=== PATIENT | female | born 1975 | race Caucasian/White ===

== ENCOUNTER 2020-04-12 19:42 | Emergency (ER) | payer OTHER ==
[2019-03-12 20:35] VITALS: BP 128/64
[~2020-04-12 19:42] MED LIST: GABA300C18 PO; LEVE500T56 PO; RANI150C PO
== END 2020-04-12 20:24 | disposition left against medical advice (07) ==
LOC: ER 19:42
DX: H92.01 Otalgia, right ear (principal); Z53.21 Procedure and treatment not carried out due to patient leaving prior to being seen by health care provider

== ENCOUNTER 2020-07-07 19:16 | Emergency (ER) | payer OTHER, MEDICAID ==
[~2020-07-07] VITALS: Ht 165.1 cm; Wt 72.7 kg
[2020-07-07] MEDS ORDERED: DIVALPROEX DELAYED RELEASE 500 MG TABLET.DR. PO ONE (20:15)
[2020-07-07 20:22] LABS: VAL ACID 110 mcg/mL (50-100)
--- NOTE | 2020-07-07 20:47 | PHYS DOC ---
Past Medical History Past Medical History: GERD, Seizure, Sciatica, Other Additional Past Medical Histor: TBI Past Surgical History: Cholecystectomy Additional Past Surgical Histo: skin grafts, wisdom teeth extraction Smoking Status: Current Every Day Smoker Alcohol Use: Occasionally Drug Use: None General Adult EDM: Chief Complaint: SEIZURE HPI: HPI: Patient is a 44-year-old female who presents to the emergency room after having 90 second seizure at home. She states that she quit taking her Depakote last week. She says sometimes she just does not want to take her medicine anymore. Seizure was observed by her boyfriend. She still feels jerky but would like to go home. She does have medication at home. Review of Systems: Review of Systems: General: Denies fever, chills, sweats, fatigue Eyes: Denies drainage, blurred vision, eye redness HENT: Denies rhinorrhea, sore throat, earache Respiratory: Denies cough, shortness of breath, wheezing Cardiac: Denies edema, palpitations, chest pain GI: Denies abdominal pain, Nausea, vomiting MSK: Denies back pain, neck pain Skin: Denies rash, jaundice Neuro: Denies headache, dizziness reports seizures Psychiatric: Denies SI/HI Heart Score: Risk Factors: Risk Factors: DM, Current or recent (<one month) smoker, HTN, HLP, family history of CAD, obesity. Risk Scores: Score 0 - 3: 2.5% MACE over next 6 weeks - Discharge Home Score 4 - 6: 20.3% MACE over next 6 weeks - Admit for Clinical Observation Score 7 - 10: 72.7% MACE over next 6 weeks - Early Invasive Strategies Current Medications: Current Medications Medications (Trade) Dose Ordered Sig/Loraine Start Time Stop Time Status Last Admin Dose Admin Divalproex Sodium (Depakote) 500 mg 1X ONCE 07/07/20 20:15 07/07/20 20:16 DC 07/07/20 20:25 500 MG Allergies: Allergies: Allergies Coded Allergies Type Severity Reaction Last Updated Verified amitriptyline Allergy Unknown Anxiety/psychosis 05/31/14 No Physical Exam: PE: General: Awake, alert, NAD. Well Nourished, well hydrated. Cooperative HEENT: Atraumatic, EOMI, PERRL, airway patent, moist oral mucosa Neck: Supple, trachea midline Respiratory: CTA bilaterally, normal effort, no wheezing/crackles CV: RRR, no murmur, cap refill <2 GI: Soft, nondistended, nontender, no masses MSK: No obvious deformities Skin: Warm, dry, intact Neuro: A&O x3, speech NL, 5/5 strength in BUE/BLE distally and proximally, CN 2- 12 intact, cerebellar testing normal Psych: Normal affect, normal mood, not suicidal or homicidal Current Patient Data: Labs: Laboratory Tests Test 07/07/20 19:25 Valproic Acid Level 110 mcg/mL (50-100) H Valproic Acid Last Dose Date 07/07/20 Valproic Acid Last Dose Time 0700 Vital Signs: Vital Signs Date Time Temp Pulse Resp B/P (MAP) Pulse Ox O2 Delivery O2 Flow Rate FiO2 07/07/20 19:16 98.7 107 24 98.7 EKG: EKG: [] Radiology/Procedures: Radiology/Procedures: [] Course & Med Decision Making: Course & Med Decision Making Pertinent Labs and Imaging studies reviewed. (See chart for details) Patient presents to the ED after having a seizure at home. Patient has a h/o seizures. Patient has returned to their baseline and has a normal neurologic exam. Patient has not been compliant with their home regimen. Dose of their home medication was given here in the ED. Patient was observed in the ED and did not have any further seizure episodes. Patient is stable for discharge at this time and will follow up with neurology. Zuleyma Disclaimer: Zuleyma Disclaimer: This electronic medical record was generated, in whole or in part, using a voice recognition dictation system. Departure Departure Impression: Primary Impression: Seizure Additional Impression: Noncompliance Disposition: HOME, SELF-CARE Condition: STABLE Referrals: NO PCP (PCP) Patient Instructions: Seizure, Adult BRYANT FAY MD Jul 07, 2020 20:46
[2020-07-07] MEDS ORDERED: ACETAMINOPHEN 500 MG TABLET PO ONE (21:15)
[2020-07-07 21:45] VITALS: BP 125/82
== END 2020-07-07 21:52 | disposition home or self-care (01) ==
LOC: ER 19:16
DX: R56.9 Unspecified convulsions (principal); Z91.19 Patient's noncompliance with other medical treatment and regimen; K21.9 Gastro-esophageal reflux disease without esophagitis; F17.200 Nicotine dependence, unspecified, uncomplicated; Z87.820 Personal history of traumatic brain injury; Z90.49 Acquired absence of other specified parts of digestive tract; Z88.8 Allergy status to other drugs, medicaments and biological substances
CPT/HCPCS: 36415; 80164; 99285-25

== ENCOUNTER 2021-03-19 11:31 | Emergency (ER) | payer OTHER, MEDICAID ==
[~2021-03-19] VITALS: Ht 165.1 cm; Wt 72.2 kg
[2021-03-19] MEDS ORDERED: LIDOCAINE 1% Multi-Dose 20 ML VIAL. INJ ONE (12:15)
[2021-03-19] MEDS ORDERED: ACETAMINOPHEN 325 MG TABLET. PO ONE (12:15)
[2021-03-19] MEDS ORDERED: DIPH,PERTUSS(ACELL),TET VAC/PF 0.5 ML SYRINGE. VAX IM ONE (12:30)
--- NOTE | 2021-03-19 12:35 | RAD ---
XR HAND_RIGHT 3 VIEWS History: Reason: small laceration anterior right hand / Spl. Instructions: / History: Technique: 3 views right hand Comparison: March 12, 2019 Findings: Normal alignment. No fracture. No radiopaque foreign body. Impression: 1. No acute osseous abnormality. Electronically signed by: Hernan Viera DO (03/19/2021 12:32 PM) [id number]
--- NOTE | 2021-03-19 12:41 | PHYS DOC ---
Past Medical History Past Medical History: GERD, Seizure, Sciatica, Other Additional Past Medical Histor: TBI,CHRONIC BACK/ABDOMINAL PAIN Past Surgical History: Cholecystectomy, Hysterectomy Additional Past Surgical Histo: skin grafts, wisdom teeth extraction Smoking Status: Current Every Day Smoker Additional Information: < 0.5 PPD Alcohol Use: Occasionally Drug Use: None General Adult EDM: Chief Complaint: LACERATION/AVULSION HPI: HPI: Patient is a 45 year old female who presents with was trying to break apart frozen hamburgers with a knife and accidentally cut her right palm of her hand on the radial side causing a 1 inch laceration. Bleeding is controlled. Patient does need a tetanus shot. She is also asking for hydrocodone and she sees her doctor on Monday but she is out of her hydrocodone. Patient rates her pain a 7 out of 10. Patient has a history of a TBI, seizures, sciatica, chronic back and abdominal pain, cholecystectomy, skin graft, wisdom teeth removal and smoker. Review of Systems: Review of Systems: Constitutional: Denies fever or chills. [] Eyes: Denies change in visual acuity. [] HENT: Denies nasal congestion or sore throat. [] Respiratory: Denies cough or shortness of breath. [] Cardiovascular: Denies chest pain or edema. [] GI: Denies abdominal pain, nausea, vomiting, bloody stools or diarrhea. [] : Denies dysuria. [] Musculoskeletal: Denies back pain or joint pain. +Right hand pain[] Integument: Denies rash. + right hand laceration[] Neurologic: Denies headache, focal weakness or sensory changes. [] Endocrine: Denies polyuria or polydipsia. [] Lymphatic: Denies swollen glands. [] Psychiatric: Denies depression or anxiety. [] Heart Score: C/O Chest Pain: No Risk Factors: Risk Factors: DM, Current or recent (<one month) smoker, HTN, HLP, family history of CAD, obesity. Risk Scores: Score 0 - 3: 2.5% MACE over next 6 weeks - Discharge Home Score 4 - 6: 20.3% MACE over next 6 weeks - Admit for Clinical Observation Score 7 - 10: 72.7% MACE over next 6 weeks - Early Invasive Strategies Current Medications: Current Medications Medications (Trade) Dose Ordered Sig/Loraine Start Time Stop Time Status Last Admin Dose Admin Acetaminophen (Tylenol) 650 mg 1X ONCE 03/19/21 12:15 03/19/21 12:16 DC 03/19/21 12:13 650 MG Diphtheria/ Tetanus/Acell Pertussis (ADACEL TDap SYRINGE) 0.5 ml ONCE ONCE 03/19/21 12:30 03/19/21 12:31 DC 03/19/21 12:30 0.5 ML Lidocaine HCl (Lidocaine 1% 20ml Vial) 20 ml 1X ONCE 03/19/21 12:15 03/19/21 12:16 DC 03/19/21 12:13 20 ML Allergies: Allergies: Allergies Coded Allergies Type Severity Reaction Last Updated Verified acetaminophen Allergy Intermediate Hives 03/19/21 Yes codeine Allergy Intermediate Hives 03/19/21 Yes morphine Allergy Intermediate HIVES 03/19/21 Yes adhesive tape Allergy Unknown UNKNOWN 03/19/21 Yes amitriptyline Allergy Unknown Anxiety/psychosis 05/31/14 No Physical Exam: PE: Constitutional: Well developed, well nourished, no acute distress, non-toxic appearance. [] HENT: Normocephalic, atraumatic, bilateral external ears normal, oropharynx moist, no oral exudates, nose normal. [] Eyes: PERRLA, EOMI, conjunctiva normal, no discharge. [] Neck: Normal range of motion, no tenderness, supple, no stridor. [] Cardiovascular:Heart rate regular rhythm, no murmur [] Lungs & Thorax: Bilateral breath sounds clear to auscultation [] Abdomen: Bowel sounds normal, soft, no tenderness, no masses, no pulsatile masses. [] Skin: Warm, dry, no erythema, no rash. Right palm of hand laceration[] Back: No tenderness, no CVA tenderness. [] Extremities: No tenderness, no cyanosis, no clubbing, ROM intact, no edema. [] Neurologic: Alert and oriented X 3, normal motor function, normal sensory function, no focal deficits noted. [] Psychologic: Affect normal, judgement normal, mood normal. [] Current Patient Data: Vital Signs: Vital Signs Date Time Temp Pulse Resp B/P (MAP) Pulse Ox O2 Delivery O2 Flow Rate FiO2 03/19/21 11:47 98.0 92 20 134/70 (91) 99 Room Air 98.0 EKG: EKG: [] Radiology/Procedures: Radiology/Procedures: [] Impression: [facility] [address] [place], [place] [id number] IMAGING REPORT Signed PATIENT: ANNA DOAN: [id number] : 1975 LOCATION: ER AGE: 45 SEX: F EXAM STATUS: REG ER ORD. PHYSICIAN: DELMER PEDERSEN APRN REASON: small laceration anterior right hand PROCEDURE: HAND RIGHT 3V XR HAND_RIGHT 3 VIEWS History: Reason: small laceration anterior right hand / Spl. Instructions: / History: Technique: 3 views right hand Comparison: March 12, 2019 Findings: Normal alignment. No fracture. No radiopaque foreign body. Impression: 1. No acute osseous abnormality. Electronically signed by: Hernan Viera DO (03/19/2021 12:32 PM) [id number] DICTATED and SIGNED BY: HERNAN VIERA DO DATE: 03/19/21 [id number] 0 Course & Med Decision Making: Course & Med Decision Making Pertinent Labs and Imaging studies reviewed. (See chart for details) See HPI. Alert and oriented x4. Ambulatory with a steady gait. Skin pink warm and dry. Radial pulse strong present. Cap refill less than 2 seconds. Edges approximated. Laceration repair Location: Right hand 1mm deep,1 inch long Local anesthesia: 1% lidocaine Interrupted sutures/Internal sutures: 7 Sutures Nerve/ligament/muscle damage: None Cleaning and irrigation: Chlorhexidine and saline The appropriate timeout was taken. The area was prepped and draped in the usual sterile fashion. The wound was copiously irrigated with normal saline and ch lorhexidine. Patient tolerated well without complication. Dressing was applied to the area follow-up education is given to observe for signs and symptoms of infection, bleeding and to follow-up promptly if these occur. Patient can return in 48 hours for a wound recheck. Sutures to be removed in 7 to 10 days. [] Dragon Disclaimer: Dragon Disclaimer: This electronic medical record was generated, in whole or in part, using a voice recognition dictation system. Departure Departure Impression: Primary Impression: Laceration Disposition: 01 HOME / SELF CARE / HOMELESS Condition: STABLE Referrals: SCOTT REGAN MD (PCP) Patient Instructions: Laceration Care, Adult Additional Instructions: Keep clean and covered. Sutures need to be removed in 10 days. Can use antibiotic ointment over it. Watch for signs of infection. Scripts Hydrocodone Bit/Acetaminophen (HYDROCODONE-APAP 5-325 ) 1 Tab Tablet 1 TAB PO PRN Q6HRS PRN for PAIN, #4 TAB 0 Refills Prov: DELMER PEDERSEN APRN 03/19/21 DELMER PEDERSEN APRN Mar 19, 2021 12:41
[2021-03-19] MEDS ORDERED: LIDOCAINE/EPI/TETRACAINE TOPICAL GEL 3 ML. TP ONE (13:15)
[2021-03-19] MEDS ORDERED: NEOMY/BACITR/POLYMYXIN OINT PACKET. TP ONE (14:00)
[2021-03-19] MEDS ORDERED: HYDR-2761 PO (14:00)
[2021-03-19 14:28] VITALS: BP 120/74
== END 2021-03-19 14:28 | disposition home or self-care (01) ==
LOC: ER 11:31
DX: S61.411A Laceration without foreign body of right hand, initial encounter (principal); K21.9 Gastro-esophageal reflux disease without esophagitis; F17.200 Nicotine dependence, unspecified, uncomplicated; G89.29 Other chronic pain; Z87.820 Personal history of traumatic brain injury; Z88.6 Allergy status to analgesic agent; Z88.5 Allergy status to narcotic agent; Z88.8 Allergy status to other drugs, medicaments and biological substances; W26.0XXA Contact with knife, initial encounter; Y93.89 Activity, other specified; Y92.89 Other specified places as the place of occurrence of the external cause; Y99.8 Other external cause status
CPT/HCPCS: 12002; 73130; 90471; 90715; 99283; J3490

== ENCOUNTER 2021-07-26 14:29 | Emergency (ER) | payer OTHER, MEDICAID ==
[~2021-07-26 14:29] MED LIST changes: +HYDR-2761 PO
== END 2021-07-26 18:00 | disposition left against medical advice (07) ==
LOC: ER 14:29
DX: M79.606 Pain in leg, unspecified (principal); G89.11 Acute pain due to trauma; Z53.21 Procedure and treatment not carried out due to patient leaving prior to being seen by health care provider; W18.39XA Other fall on same level, initial encounter; Y93.89 Activity, other specified; Y92.89 Other specified places as the place of occurrence of the external cause; Y99.8 Other external cause status